=== PATIENT | female | born 1995 | race African-American/Black ===

== ENCOUNTER 2017-08-21 10:02 | Emergency (ER) | payer OTHER ==
--- NOTE | 2017-08-21 10:07 | PDOC ---
History of Present Illness - General Chief Complaint: Pain, Acute Stated Complaint: PAIN Time Seen by Provider: 08/21/17 10:06 - History of Present Illness Initial Comments: 08/21/17 10:13 Ms. Leblanc is a 21 yo female w/ pmh of asthma who presents c/o sudden onset of RLQ pain earlier today while she was at work. She says that she is experiencing 10/10 pain and that she is experiencing resultant nausea with vomiting. Past History - Past Medical History Allergies/Adverse Reactions: Allergies Allergy/AdvReac Type Severity Reaction Status Date / Time No Known Allergies Allergy Verified 08/21/17 10:10 Home Medications: Ambulatory Orders Naproxen 500 mg PO BID PRN #20 tablet 08/21/17 Oxycodone HCl/Acetaminophen [Percocet 5-325 mg Tablet] 1 tab PO Q6H PRN #15 tablet MDD 4 08/21/17 ED Treatment Course - LABORATORY CBC & Chemistry Diagram: 08/21/17 13:30 08/21/17 10:21 Medical Decision Making - Medical Decision Making 08/21/17 10:47 Ms. Leblanc is a 21 yo female w/ pmh of asthma who presents w/ acute onset RLQ pain. Abdominal CT/transvaginal US sent for further evaluation. 08/21/17 13:22 Patient noted to have low H/H 7.6/26.5 with free fluid noted in pelvis on CT/ US. Large cystic lesion of uterus possibly myoma. Also 4.4 cm complex R ovarian cyst with 13.1x8.6x9.2 complex cyst noted in region of L adnexal region. [employer] consulted who believe this may be oncologic in nature. 08/21/17 15:01 Patient discussed with [employer] as well as oncology. Outpatient appt. set up and extensive discussion had with patient concerning F/U. Patient verbalized understanding and agreement and will comply. D/Cing to home. *DC/Admit/Observation/Transfer Diagnosis at time of Disposition: Ruptured ovarian cyst - Discharge Dispostion Disposition: HOME Condition at time of disposition: Improved - Prescriptions Prescriptions: Naproxen 500 mg PO BID PRN #20 tablet PRN Reason: Pain Oxycodone HCl/Acetaminophen [Percocet 5-325 mg Tablet] 1 tab PO Q6H PRN #15 tablet MDD 4 PRN Reason: Severe Pain - Referrals - Patient Instructions Printed Discharge Instructions: DI for Ovarian Cyst Additional Instructions: Your findings under ultrasound and CAT scan which demonstrates large structures under ovaries. This will need to be further investigated for potential tumor. I have a ready set up an appointment with you and [facility] for this August 23 at 1 PM. Please call [phone] to confirm your appointment. The appointment is at [address] [place] [address] in the [place]. Please bring the copy this ED and her blood work and a reports to the appointment. You may take 500 mg of naproxen every 12 hours as needed for pain. For additional relief, take a tablet Percocet every 6 hours needed. Do not drink or drive on this medication. If you have uncontrollable pain, please return to the ER for further evaluation. - Post Discharge Activity Forms/Work/School Notes: Back to Work
[2017-08-21 10:15] VITALS: TEMP 97.9; BMI 25.7
[2017-08-21] MEDS ORDERED: morphine CARPU-JECT 4 MG/1 ML DISP.SYRIN IVPUSH ONE ×2 (10:18→13:12)
[2017-08-21] MEDS ORDERED: ONDANSETRON 4 MG/2 ML VIAL IVPUSH ONE (10:22)
[2017-08-21] MEDS ORDERED: SODIUM CHLORIDE 1,000 ML IV STA (10:22)
[2017-08-21] MEDS ORDERED: ONDANSETRON 4 MG/2 ML VIAL ONE (10:24)
[2017-08-21] MEDS ORDERED: MORPHINE SULFATE 10 MG/1 ML *VIAL ONE ×2 (10:24→13:23)
--- NOTE | 2017-08-21 10:28 | PDOC ---
Attending Attestation - Resident Resident Name: Ryder Chavez - ED Attending Attestation I have performed the following: I have examined & evaluated the patient, The case was reviewed & discussed with the resident, I agree w/resident's findings & plan, Exceptions are as noted - HPI HPI: 08/21/17 10:28 21-year-old female with no past medical history presents with sudden onset of right lower quadrant pain. The patient reports that she was in her usual state health when she developed this right lower quadrant discomfort with nausea and vomiting. Denies fevers or chills. Denies diarrhea. Patient reports that her periods are irregular and does not think she is . Denies vaginal bleeding or dysuria. - Physicial Exam PE: 08/21/17 10:29 GENERAL: Awake, alert, and fully oriented, in no acute distress. HEAD: No signs of trauma EYES: PERRLA, EOMI, sclera anicteric, conjunctiva clear ENT: Auricles normal inspection, hearing grossly normal, NECK: Normal ROM, supple ABDOMEN: TTP RLQ. Soft, No guarding, no rebound. No masses EXTREMITIES: Normal range of motion, no edema. No clubbing or cyanosis. No cords, erythema, or tenderness NEUROLOGICAL: Cranial nerves II through XII grossly intact. Normal speech SKIN: Warm, Dry, normal turgor, no rashes or lesions noted. - Medical Decision Making 08/21/17 10:29 Vital Signs Temp Pulse Resp BP Pulse Ox 97.9 F 79 18 107/67 100 08/21/17 10:05 08/21/17 10:05 08/21/17 10:05 08/21/17 10:05 08/21/17 10:05 21-year-old female with right lower quadrant pain. We'll need a urine test. Obtain labs and CAT scan abdomen pelvis and transvaginal ultrasound. Differential includes appendicitis, ruptured ovarian cyst, ovarian torsion. Pain control reassess. 08/21/17 14:53 CAT scan demonstrates no evidence acute appendicitis. However this large amount of free fluid within the pelvis. Large cystic lesions fundus of uterus may represent a myoma. A large cystic structures and pelvis difficult to evaluate may represent ovarian origin. Ultrasound demonstrates large partially calcified fundal myoma. 4. for centers complex right ovarian cyst probably homogeneous can exclude endometrioma. Left ovary not definitively identified however the left adnexal region as a multiloculated cystic structure measuring 13.1 x 8.6 x 9.2 cm. Initial hemoglobin 7.6. 08/21/17 14:57 I initially discussed the case with coding manager Dr. Kelly. Given these findings, there were concerns that these complex structures me to be secondary to malignancy. She requests that I referred the patient to another hospital for transfer. Case was discussed with [facility] coding manager Dr. Multani, who is working in conjunction with [facility] coding manager attending Dr. Rogers ([phone]). The agree that the patient needs tumor markers and malignancy workup. The requests that we send CEA, CA 19-9, CA 125 levels and to have the patient follow -up in their office on Tuesday 1 PM. This is in 2 days. The clinic is [address] [place] [address] ([phone]). They recommend that the patient can be follow- up as an outpatient does not assay need transfer or inpatient. Given that the CAT scan demonstrated fluid in the abdomen which is likely to ruptured ovarian cysts, I had repeated the hematocrit. Hemoglobin was 7.6. The patient's pain is stressed improved and her vital signs have been stable. I discussed the case with our coding manager Dr. Kelly agrees with the plan. Given that the patient is stable, the patient can follow-up as an outpatient with [facility]. The patient is agreeable with this plan. I had discussed extensively at length the course her findings including that these [place] structures maybe tumors or malignancy. I advised the patient feels lightheaded or feels like she is going to faint that she should return to the ER. We'll give a copy of the CD, labs and reports and have the patient follow with [facility]. I discussed the physical exam findings, ancillary test results and final diagnoses with the patient. I answered all of the patient's questions. The patient was satisfied with the care received and felt comfortable with the discharge plan and treatment plan. The patient will call their primary care physician within 24 hours to arrange follow-up and will return to the Emergency Department with any new, persistant or worsening symptoms.
[2017-08-21 10:53] LABS: INR 1.12 (0.82-1.09); PROTHROMBIN TIME (PATIENT) 12.6 SEC (9.98-11.88)
[2017-08-21 10:54] LABS: ALBUMIN 3.6 g/dl (3.4-5.0); ALK PHOS 62 U/L (45-117); ANION GAP 10 (8-16); BILIRUBIN,TOTAL 0.2 mg/dL (0.2-1.0); BLOOD UREA NITROGEN 18 mg/dL (7-18); CALCIUM 8.4 mg/dL (8.5-10.1); CHLORIDE 105 mmol/L (98-107); CO2 24 mmol/L (21-32); CREATININE 0.8 mg/dL (0.55-1.02); GLUCOSE,RANDOM 91 mg/dL (74-106); LIPASE 145 U/L (73-393); POTASSIUM 3.7 mmol/L (3.5-5.1); SGOT/AST 16 U/L (15-37); SGPT/ALT 13 U/L (12-78); SODIUM 139 mmol/L (136-145); TOT PROT 7.2 g/dl (6.4-8.2)
[2017-08-21 10:55] LABS: ACTIVATED PTT 27.8 SECONDS (26.9-34.4)
[2017-08-21 11:47] LABS: HEMATOCRIT 26.5 % (32.4-45.2); HEMOGLOBIN 7.6 GM/dL (10.7-15.3); MCH 18.8 pg (25.7-33.7); MCHC 28.7 g/dl (32.0-36.0); MEAN CELL VOLUME 65.5 fl (80-96); MEAN PLT VOLUME 8.8 fl (7.5-11.1); PLATELET COUNT 194 K/MM3 (134-434); RBC 4.05 M/mm3 (3.60-5.2); RDW 23.8 % (11.6-15.6); WHITE BLOOD COUNT 7.6 K/mm3 (4.0-10.0)
[2017-08-21 11:49] LABS: URINE APPEARANCE CLEAR; URINE BILIRUBIN NEGATIVE (NEGATIVE); URINE BLOOD NEGATIVE (NEGATIVE); URINE COLOR LTYELLOW; URINE GLUCOSE (UA) NEGATIVE (NEGATIVE); URINE KETONE TRACE (NEGATIVE); URINE LEUK ESTERASE TRACE (NEGATIVE); URINE NITRITE NEGATIVE (NEGATIVE); URINE PROTEIN NEGATIVE (NEGATIVE); URINE UROBILINOGEN NEGATIVE mg/dL (0.2-1.0)
[2017-08-21 11:52] LABS: EPI CELLS RARE /HPF (FEW); URINE MUCUS RARE
[2017-08-21 12:24] LABS: ANISOCYTOSIS 2+; MACROCYTOSIS 0; PLATELET ESTIMATE NORMAL; TARGET CELLS 1+; TEAR DROP CELLS 1+
[2017-08-21 14:27] LABS: HEMATOCRIT 26.1 % (32.4-45.2); HEMOGLOBIN 7.6 GM/dL (10.7-15.3); MCHC 29.2 g/dl (32.0-36.0); MEAN CELL VOLUME 65.3 fl (80-96); MEAN PLT VOLUME 9.3 fl (7.5-11.1); PLATELET COUNT 193 K/MM3 (134-434); RDW 24.1 % (11.6-15.6); WHITE BLOOD COUNT 10.7 K/mm3 (4.0-10.0)
[2017-08-21 14:36] LABS: MCH 19.1 pg (25.7-33.7)
[2017-08-21] MEDS ORDERED: KETOROLAC TROMETHAMINE 30 MG/1 ML VIAL IVPUSH ONE (14:47)
[2017-08-21] MEDS ORDERED: KETOROLAC TROMETHAMINE 30 MG/1 ML VIAL ONE (14:53)
[2017-08-21 15:01] VITALS: BP 131/74; PULSE 74
--- NOTE | 2017-08-21 15:03 | PDOC ---
*Physical Exam - Vital Signs Last Vital Signs Temp Pulse Resp BP Pulse Ox 97.9 F 68 12 112/67 100 08/21/17 10:05 08/21/17 13:30 08/21/17 13:30 08/21/17 13:30 08/21/17 13:30 ED Treatment Course - LABORATORY CBC & Chemistry Diagram: 08/21/17 13:30 08/21/17 10:21 - ADDITIONAL ORDERS Additional order review: Laboratory Results 08/21/17 08/21/17 08/21/17 13:31 11:40 10:21 PT with INR INR PTT (Actin FS) Sodium Potassium Chloride Carbon Dioxide Anion Gap BUN Creatinine Creat Clearance w eGFR Random Glucose Calcium Total Bilirubin AST ALT Alkaline Phosphatase Total Protein Albumin Lipase Serum , Qual Urine Color Ltyellow Urine Appearance Clear Urine pH 6.0 Ur Specific Roe 1.032 Urine Protein Negative Urine Glucose (UA) Negative Urine Ketones Trace H Urine Blood Negative Urine Nitrite Negative Urine Bilirubin Negative Urine Urobilinogen Negative Ur Leukocyte Esterase Trace Urine WBC (Auto) 4 Urine RBC (Auto) 1 Ur Epithelial Cells Rare Urine Mucus Rare Blood Type O POSITIVE O POSITIVE Antibody Screen Negative 08/21/17 08/21/17 08/21/17 10:21 10:21 10:21 PT with INR 12.60 H INR 1.12 PTT (Actin FS) 27.8 Sodium 139 Potassium 3.7 Chloride 105 Carbon Dioxide 24 Anion Gap 10 BUN 18 Creatinine 0.8 Creat Clearance w eGFR > 60 Random Glucose 91 Calcium 8.4 L Total Bilirubin 0.2 AST 16 ALT 13 Alkaline Phosphatase 62 Total Protein 7.2 Albumin 3.6 Lipase 145 Serum , Qual Negative Urine Color Urine Appearance Urine pH Ur Specific Roe Urine Protein Urine Glucose (UA) Urine Ketones Urine Blood Urine Nitrite Urine Bilirubin Urine Urobilinogen Ur Leukocyte Esterase Urine WBC (Auto) Urine RBC (Auto) Ur Epithelial Cells Urine Mucus Blood Type Antibody Screen 08/21/17 08/21/17 13:30 10:21 RBC 4.00 4.05 MCV 65.3 L 65.5 L MCHC 29.2 L 28.7 L RDW 24.1 H 23.8 H MPV 9.3 8.8 Neutrophils % No Result Required. Lymphocytes % No Result Required. - Medications Given in the ED: ED Medications Discontinued Medications Generic Name Dose Route Start Last Admin Trade Name Freq PRN Reason Stop Dose Admin Sodium Chloride 1,000 mls @ 1,000 mls/hr 08/21/17 10:22 08/21/17 10:32 Normal Saline - IV 08/21/17 11:21 1,000 mls/hr ASDIR STA Administration Morphine Sulfate 4 mg 08/21/17 10:18 08/21/17 10:32 Morphine Injection - IVPUSH 08/21/17 10:19 4 mg ONCE ONE Administration Morphine Sulfate 4 mg 08/21/17 13:12 08/21/17 13:24 Morphine Injection - IVPUSH 08/21/17 13:13 4 mg ONCE ONE Administration Ondansetron HCl 4 mg 08/21/17 10:22 08/21/17 10:32 Zofran Injection IVPUSH 08/21/17 10:23 4 mg ONCE ONE Administration *DC/Admit/Observation/Transfer Diagnosis at time of Disposition: Ruptured ovarian cyst - Discharge Dispostion Disposition: HOME Condition at time of disposition: Improved Admit: No - Prescriptions Prescriptions: Naproxen 500 mg PO BID PRN #20 tablet PRN Reason: Pain Oxycodone HCl/Acetaminophen [Percocet 5-325 mg Tablet] 1 tab PO Q6H PRN #15 tablet MDD 4 PRN Reason: Severe Pain - Referrals - Patient Instructions Printed Discharge Instructions: DI for Ovarian Cyst Additional Instructions: Your findings under ultrasound and CAT scan which demonstrates large structures under ovaries. This will need to be further investigated for potential tumor. I have a ready set up an appointment with you and [facility] for this August 23 at 1 PM. Please call [phone] to confirm your appointment. The appointment is at [address] [place] [address] in the [place]. Please bring the copy this ED and her blood work and a reports to the appointment. You may take 500 mg of naproxen every 12 hours as needed for pain. For additional relief, take a tablet Percocet every 6 hours needed. Do not drink or drive on this medication. If you have uncontrollable pain, please return to the ER for further evaluation. - Post Discharge Activity
== END 2017-08-21 15:05 | disposition home or self-care (01) ==
LOC: JER 10:02
PROC: 3E033NZ Introduction of Analgesics, Hypnotics, Sedatives into Peripheral Vein, Percutaneous Approach (ICD-10-PCS; principal; 2017-08-21)
PROC: 3E033GC Introduction of Other Therapeutic Substance into Peripheral Vein, Percutaneous Approach (ICD-10-PCS; 2017-08-21)
PROC: 3E0333Z Introduction of Anti-inflammatory into Peripheral Vein, Percutaneous Approach (ICD-10-PCS; 2017-08-21)
DX: N83.201 Unspecified ovarian cyst, right side (principal); N83.202 Unspecified ovarian cyst, left side; D25.9 Leiomyoma of uterus, unspecified
CPT/HCPCS: 36415; 74177-TC; 76830-TC; 80053; 81003; 81015; 82378; 83690; 84703; 85025; 85027; 85610; 85730; 86301; 86304; 86850; 86900; 86901; 87086; 96374; 96375; 99283-25